=== PATIENT | female | born 2000 | race African-American/Black ===

== ENCOUNTER 2024-02-21 10:30 | Emergency (ER) | payer OTHER, SELFPAY ==
[2024-02-21 10:44] VITALS: BP 111/69; PULSE 79; RESP 20; TEMP 36.5; O2SAT 100
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
== END 2024-02-21 11:20 | disposition short-term general hospital (02) ==
PROVIDERS: Emergency Provider Nurse Practitioner
DX: R42 Dizziness and giddiness (principal); H53.8 Other visual disturbances; M54.2 Cervicalgia; V47.5XXA Car driver injured in collision with fixed or stationary object in traffic accident, initial encounter; F41.9 Anxiety disorder, unspecified; F32.A Depression, unspecified
CPT/HCPCS: 99212; G0463

== ENCOUNTER 2024-02-21 11:33 | Emergency (ER) | payer OTHER, SELFPAY ==
[2024-02-21 11:39] VITALS: BP 125/75; PULSE 67; RESP 16; TEMP 36.6; O2SAT 99
== END 2024-02-21 14:01 | disposition left against medical advice (07) ==
DX: R51.9 Headache, unspecified (principal)
CPT/HCPCS: 99199